=== PATIENT | female | born 1985 | race American Indian/Alaskan Native ===

== ENCOUNTER 2019-10-19 00:29 | Emergency (ER) | payer BC ==
[2019-10-19] MEDS ORDERED: ALBUTEROL 2.5 MG/3 ML NEBU IH ONE (02:07)
[2019-10-19] MEDS ORDERED: SODIUM CHLORIDE 0.9% 1000 ML 1,000 ML IV ONE (02:07)
[2019-10-19] MEDS ORDERED: MAGNESIUM SULFATE 2 GM/50 ML BAG IV ONE (02:07)
[2019-10-19] MEDS ORDERED: IPRATROPIUM 0.02% NEBU 2.5 ML IH ONE (02:07)
[2019-10-19] MEDS ORDERED: dexAMETHasone 20 MG/5 ML VIAL IV ONE (02:10)
--- NOTE | 2019-10-19 02:20 | Emergency Department Report ---
- General Chief Complaint: Upper Respiratory Infection Stated Complaint: DIFFICULTY IN BREATHING Time Seen by Provider: 10/19/19 01:46 Source: patient Mode of arrival: Ambulatory Limitations: No Limitations - History of Present Illness Initial Comments: 33-year-old -[place] female presents to the emergency room for asthma that has been going on for 3 weeks. Patient reports cough runny nose headache shortness of breathing and body aches. She denies any fever or chills. Patient denies any nausea vomiting or abdominal pain. Patient reports she has not used any medication to help with her symptoms. She reports a past medical history of asthma and currently on no medication. MD Complaint: cough, rhinorrhea, nasal congestion Onset/Timin -: week(s) Severity: moderate Improves With: nothing Worsens With: nothing Associated Symptoms: myalgias, headache, rhinorrhea, cough. denies: fever, chills Treatments Prior to Arrival: none - Related Data Previous Rx's Medication Instructions Recorded Last Taken Type ALBUTEROL Inhaler (OR & NICU) 2 puff IH QID PRN #8.5 gram 10/19/19 Unknown Rx [ProAir HFA Inhaler] Albuterol Sulfate [Albuterol 0.63% 0.63 mg IH TID PRN #270 ml 10/19/19 Unknown Rx NEBS] Azithromycin [Zithromax TAB] 250 mg PO QDAY #6 tablet 10/19/19 Unknown Rx Nebulizer [Compact Compressor 1 each MC TID #1 each 10/19/19 Unknown Rx Nebulizer] predniSONE [Deltasone] 40 mg PO QDAY #10 tab 10/19/19 Unknown Rx Allergies Allergy/AdvReac Type Severity Reaction Status Date / Time No Known Allergies Allergy Unverified 10/19/19 00:41 ED Review of Systems ROS: Stated complaint: DIFFICULTY IN BREATHING Other details as noted in HPI Comment: All other systems reviewed and negative ED Past Medical Hx - Past Medical History Previous Medical History?: Yes Hx Asthma: Yes - Surgical History Past Surgical History?: No - Social History Smoking Status: Current Every Day Smoker Substance Use Type: Alcohol, Marijuana - Medications Home Medications: Home Medications Medication Instructions Recorded Confirmed Last Taken Type ALBUTEROL Inhaler (OR & NICU) 2 puff IH QID PRN #8.5 gram 10/19/19 Unknown Rx [ProAir HFA Inhaler] Albuterol Sulfate [Albuterol 0.63% 0.63 mg IH TID PRN #270 ml 10/19/19 Unknown Rx NEBS] Azithromycin [Zithromax TAB] 250 mg PO QDAY #6 tablet 10/19/19 Unknown Rx Nebulizer [Compact Compressor 1 each MC TID #1 each 10/19/19 Unknown Rx Nebulizer] predniSONE [Deltasone] 40 mg PO QDAY #10 tab 10/19/19 Unknown Rx ED Physical Exam - General Limitations: No Limitations General appearance: alert, in no apparent distress - Head Head exam: Present: atraumatic, normocephalic - Eye Eye exam: Present: PERRL, EOMI - ENT ENT exam: Present: mucous membranes moist - Respiratory Respiratory exam: Present: wheezes - Cardiovascular Cardiovascular Exam: Present: regular rate, normal rhythm. Absent: systolic murmur, diastolic murmur, rubs, gallop - GI/Abdominal GI/Abdominal exam: Present: soft, normal bowel sounds - Neurological Exam Neurological exam: Present: alert, oriented X3, normal gait - Psychiatric Psychiatric exam: Present: normal affect, normal mood - Skin Skin exam: Present: warm, dry, intact, normal color. Absent: rash ED Course Vital Signs 10/19/19 10/19/19 00:33 02:40 Temperature 98.2 F Pulse Rate 94 H Pulse Rate [ 81 Posterior Bilateral Throughout] Respiratory 18 Rate Respiratory 20 Rate [Posterior Bilateral Throughout] Blood Pressure 147/85 O2 Sat by Pulse 96 Oximetry ED Medical Decision Making - Medical Decision Making 33-year-old -[place] female presents to the emergency room for asthma that has been going on for 3 weeks. Patient reports cough runny nose headache shortness of breathing and body aches. She denies any fever or chills. Patient denies any nausea vomiting or abdominal pain. Patient reports she has not used any medication to help with her symptoms. She reports a past medical history of asthma and currently on no medication. Patient has been ordered albuterol, Atrovent, magnesium, normal saline, dexamethasone IV. Critical care attestation.: If time is entered above; I have spent that time in minutes in the direct care of this critically ill patient, excluding procedure time. ED Disposition Clinical Impression: Respiratory infection, upper, Asthma Disposition: DC- TO HOME OR SELFCARE Is pt being admited?: No Does the pt Need Aspirin: No Condition: Stable Instructions: Asthma (ED), Reactive Airways Disease (ED), Upper Respiratory Infection (ED) Prescriptions: Albuterol Sulfate [Albuterol 0.63% NEBS] 0.63 mg IH TID PRN #270 ml PRN Reason: Wheezing Nebulizer [Compact Compressor Nebulizer] 1 each MC TID #1 each predniSONE [Deltasone] 40 mg PO QDAY #10 tab ALBUTEROL Inhaler (OR & NICU) [ProAir HFA Inhaler] 2 puff IH QID PRN #8.5 gram PRN Reason: Shortness Of Breath Azithromycin [Zithromax TAB] 250 mg PO QDAY #6 tablet Referrals: PRIMARY CAREMD [Primary Care Provider] - 3-5 Days KUMAR VENTURA MD [Staff Physician] - 3-5 Days Forms: Work/School Release Form(ED)
[2019-10-19 04:52] VITALS: BP 132/79
== END 2019-10-19 04:30 | disposition home or self-care (01) ==
LOC: ED 00:29
DX: J06.9 Acute upper respiratory infection, unspecified (principal); F17.200 Nicotine dependence, unspecified, uncomplicated; F12.10 Cannabis abuse, uncomplicated; Z79.899 Other long term (current) drug therapy
CPT/HCPCS: 94640; 96365; 96375; 99283; J1100; J3475; J7030; 94644